=== PATIENT | male | born 1975 | race African-American/Black ===

== ENCOUNTER 2018-04-27 06:34 | Day surgery (SDC) | payer MEDICAID ==
--- NOTE | 2018-04-26 13:55 | Pre-Procedure Note/Attestation ---
Pre-Procedure Note/Attestation Complete Prior to Procedure Planned Procedure: right Procedure Narrative: phaco with IOL Indications for Procedure Pre-Operative Diagnosis: cataract Attestation I attest that I discussed the nature of the procedure; its benefits; risks and complications; and alternatives (and the risks and benefits of such alternatives ), prior to the procedure, with the patient (or the patient's legal marketing sales representative). I attest that, if there was a reasonable possibility of needing a blood transfusion, the patient (or the patient's legal marketing sales representative) was given the [facility] standardized written summary, pursuant to the [place] Blood Safety Act ([place] Health and Safety Code # 1645, as amended). I attest that I re-evaluated the patient just prior to the surgery and that there has been no change in the patient's H&P, except as documented below: CASH NOONAN Apr 26, 2018 13:55
--- NOTE | 2018-04-26 13:56 | Opthalmology H&P ---
Ophthalmology H&P H&P Chief Complaint: decreased vision in right eye HPI Vision Affects Ability to: read, focus/use eyes together, manage personal affairs HPI Narrative blurry vision Exam Visual Acuity: OD: 20/80 OS: 20/40 Tension: OD: 17 OS: 17 Eye Exam: normal OU: external exam, palpebral fissure-width, marginal reflex distance, levator function, corneas, anterior chambers, fundus exam; findings: lens - PSC OU Assessment/Plan Diagnosis: (1) Posterior subcapsular cataract, right eye Treatment Plan: cataract extraction w/ lens implant Goals of Treatment: improvement of vision, enhance quality of life Attestation Attestation The risks and benefits of the surgery as well as alternative procedures were explained to the patient in detail. CASH NOONAN Apr 26, 2018 13:56
[~2018-04-27] VITALS: Ht 175.3 cm; Wt 98.0 kg
[2018-04-27] VITALS (8 sets, daily range): BP systolic 112–148; BP diastolic 60–99
[2018-04-27] MEDS ORDERED: Pilocarpine 2% Opth 15ml Soln ONE (07:00)
[2018-04-27] MEDS ORDERED: Tetracaine 0.5% Opth 4ml Soln RIGHT EYE ONE (07:00)
[2018-04-27] MEDS ORDERED: Dexamethasone 4mg/ml vial ONE (07:00)
[2018-04-27] MEDS ORDERED: Proparacaine 0.5% Opth Soln 15ml RIGHT EYE ONE (07:00)
[2018-04-27] MEDS ORDERED: Akten 3.5% 1ml Btl RIGHT EYE ONE (07:00)
[2018-04-27] MEDS ORDERED: Pred Forte 1% Opth Susp 1ml ONE (07:00)
[2018-04-27] MEDS ORDERED: Maxitrol Opth Oint 3.5gm ONE (07:00)
[2018-04-27] MEDS: Tropicamide 1% Opth 15ml Soln RIGHT EYE SCH ×3 (12:49→13:05)
[2018-04-27] MEDS: Phenylephrine 10% Opth Soln 5ml RIGHT EYE SCH ×3 (12:49→13:05)
[2018-04-27] MEDS: Tobramycin Op Soln 0.3% 5ml RIGHT EYE SCH ×3 (12:50→13:05)
[2018-04-27] MEDS: Diclofenac Sod 0.1% Op Soln RIGHT EYE SCH ×3 (12:50→13:05)
[2018-04-27] MEDS: Cyclopentolate 1% Opth Sol 2ml RIGHT EYE SCH ×3 (12:50→13:05)
[2018-04-27] MEDS ORDERED: Sterile Water Irrig 1000ml IRRIG ONE (13:00)
[2018-04-27] MEDS ORDERED: NS Irrig 1000ml ONE (13:00)
[2018-04-27] MEDS ORDERED: LR 1000ml ONE (13:00)
[2018-04-27] MEDS ORDERED: BASAGLAR SQ (13:04)
[2018-04-27] MEDS ORDERED: ADMELOG SQ (13:04)
[2018-04-27] MEDS ORDERED: EPINEPHrine 1mg/1ml Amp ONE (13:15)
[2018-04-27] MEDS ORDERED: Lidocaine 1% MPF 10mg/ml 5ml ONE (13:15)
[2018-04-27] MEDS ORDERED: Propofol 200mg/20ml IV ONE (13:15)
[2018-04-27] MEDS ORDERED: Midazolam 2mg/2ml Inj ONE (13:16)
[2018-04-27] MEDS ORDERED: Povidone-Iodine 5% opth solution ONE (13:16)
[2018-04-27] MEDS ORDERED: BSS 15ml BTL ONE (13:16)
[2018-04-27] MEDS ORDERED: BSS 500ml btl ONE (13:16)
[2018-04-27] MEDS ORDERED: fentaNYL 100 mcg/2 mL IV ONE (13:16)
[2018-04-27] MEDS ORDERED: Sodium Hyaluronate 14 mg/ml 0.85ml ONE (13:16)
--- NOTE | 2018-04-27 13:26 | Anethesia Preoperative Eval ---
Anesthesia Pre-op PMH/ROS General Date of Evaluation: Apr 27, 2018 Time of Evaluation: 13:10 Anesthesiologist: Isidro ASA Score: ASA 3 Mallampati Score Class I : Soft palate, uvula, fauces, pillars visible Class II: Soft palate, uvula, fauces visible Class III: Soft palate, base of uvula visible Class IV: Only hard plate visible Mallampati Classification: Class I Surgeon: Trupti Diagnosis: cataract Surgical Procedure: R cataract extraction with IOL implantatation Anesthesia History: none Family History: no anesthesia problems Allergies: Coded Allergies: No Known Allergies (Unverified , 04/27/18) Medications: see eMAR Past Medical History Cardiovascular: Reports: HTN Endocrine: Reports: DM HEENT: Reports: cataract (R) Anesthesia Pre-op Phys. Exam Physician Exam Last Vital Signs Date Time Temp Pulse Resp B/P (MAP) Pulse Ox O2 Delivery O2 Flow Rate FiO2 04/27/18 13:01 97.0 77 18 148/99 (115) 99 97.0 04/27/18 12:43 Room Air Constitutional: NAD Cardiovascular: RRR Respiratory: CTA Airway Exam Mallampati Score: Class I MO: full ROM: full Anesthesia Pre-op A/P Studies Pre-op Studies: EKG, CXR Risk Assessment & Plan Assessment: ASA 3 Plan: Tootie Qiu M.D. Apr 27, 2018 13:26
[2018-04-27] MEDS ORDERED: Hydromorphone 0.5mg/0.5ml inj IVP PRN (13:30)
[2018-04-27] MEDS ORDERED: fentaNYL 100 mcg/2 mL IV PRN (13:30)
--- NOTE | 2018-04-27 14:08 | Immediate Post-Op Evaluation ---
Immediate Post-Op Evalulation Immediate Post-Op Evalulation Procedure: R CATARACT EXCTRACTION WITH IOL IMPLANTATION Date of Evaluation: Apr 27, 2018 Time of Evaluation: 14:07 IV Fluids: 300 Blood Products: NONE Estimated Blood Loss: NONE Urinary Output: NR Blood Pressure Systolic: 134 Blood Pressure Diastolic: 70 Pulse Rate: 80 Respiratory Rate: 18 O2 Sat by Pulse Oximetry: 99 Temperature (Fahrenheit): 98.8 Pain Score (1-10): 0 Nausea: No Vomiting: No Complications NONE Patient Status: awake Hydration Status: adequate Drug: NPNE INDICATED Tootie Felix M.D. Apr 27, 2018 14:08
--- NOTE | 2018-04-27 14:12 | 48 Hour Post Anesthesia Eval ---
Post Anesthesia Evaluation Procedure: R CATARACT EXCTRACTION WITH IOL IMPLANTATION Date of Evaluation: Apr 27, 2018 Time of Evaluation: 14:12 Blood Pressure Systolic: 139 0: 79 Pulse Rate: 81 Respiratory Rate: 18 Temperature (Fahrenheit): 98.8 O2 Sat by Pulse Oximetry: 99 Airway: patent Nausea: No Vomiting: No Pain Intensity: 0 Hydration Status: adequate Mental Status/LOC: patient returned to baseline Follow-up care needed: ready to discharge Tootie Felix M.D. Apr 27, 2018 14:12
--- NOTE | 2018-04-28 09:28 | Brief Operative Note ---
Immediate Post Operative Note Operative Note Chief Complaint: blurry vision Pre-op Diagnosis: cataract, OD Procedure: phaco with IOL, OD Post-op Diagnosis: Pseudophakia Post-op Diagnosis: same as pre-op Findings: consistent w/pre-op dx studies Surgeon: Trupti Anesthesiologist: Isidro Anesthesia: MAC Specimen: none Complications: none Condition: stable Fluids: LR Estimated Blood Loss: none Drains: none Implant(s) used?: Yes CASH NOONAN Apr 28, 2018 09:28
--- NOTE | 2018-04-28 09:30 | Operative Note - PDOC ---
Operative Note Operative Note Date of Operation/Procedure: Apr 27, 2018 Chief Complaint: blurry vision Pre-op Diagnosis: cataract, OD Procedure: phaco with IOL, OD Post-op Diagnosis: Pseudophakia Post-op Diagnosis: same as pre-op Operative Findings: consistent w/pre-op dx studies Surgeon: Trupti Anesthesiologist: Isidro Anesthesia: MAC Specimen: none Complications: none Condition: stable Fluids: LR Estimated Blood Loss: none Drains: none Implant(s) used?: Yes Indications for Procedure cataract Description of Procedure This patient has been complaining visually significant cataract in the affected eye with the best corrected visual acuity under moderate glare conditions worse. The patient complains of difficulties with glare in performing activities of daily living and wants to manage personal affairs with comfort and accuracy and see well enough to move with safety at home and outdoors. The risks, benefits and alternatives of the procedure were discussed with the patient in the office prior to scheduling surgery. All questions from the patient were answered after the surgical procedure was explained in detail. The risks of the procedure as explained to the patient include, but are not limited to, pain, infection, bleeding, loss of vision, retinal detachment, need for further surgery, loss of lens nucleus, double vision, etc. Alternative procedures were discussed which include, to do nothing or seek a second opinion. Informed consent for this procedure was obtained from the patient. The patient was referred to a primary care physician for a cardiopulmonary clearance prior to surgery, after proper evaluation was done patient was properly scheduled for outpatient surgery. The patient was brought to the operating room where the anesthesiologist established I.V. lines and cardiac monitoring leads. Mild intravenous sedation was administered. The patient was then prepared with a 5% solution of povidone -iodine to the conjunctival fornix and lashes, and a 5% solution of povidone- iodine to the lids and periorbital skin. The patient was then draped in the usual sterile fashion. A lid speculum was then placed in the operative eye. A keratome blade was then used to create a biplanar incision into the anterior chamber. Viscoelastics was then instilled into the anterior chamber. A 3-mm single pass clear corneal incision was made just anterior to the vascular arcade of the temporal limbus using a keratome. An anterior capsulorrhexis was created. The nucleus was hydrodissected and hydrodelineated, and was freely movable in the capsular bag. The nucleus was then phacoemulsified. Following the deep groove formation, the lens was split bimanually and the resultant quadrants and epicortex removed. Peripheral cortex was removed with the irrigation and aspiration handpiece. The capsular bag was expanded with viscoelastic. The intraocular lens was then inspected for right power and size and thought to be satisfactory. The implant was inspected under the microscope and found to be free of defects. The implant was inserted into the cartridge system under viscoelastic and placed in the capsular bag. The trailing haptic was positioned with the cartridge system. Viscoelastics was removed from the anterior chamber using the irrigation and aspiration unit. The corneal wound was then tested for leaks and none were found. The lid speculum were then removed. Sponge and needle counts were correct. An eye patch and shield were placed over the operative eye. The patient was taken to the recovery room in stable condition. There were no complications. The patient tolerated the procedure well. The patient was then transferred to the ambulatory surgery unit in stable and satisfactory condition , was given detailed written instructions and asked to follow up in the office the next day. CASH NOONAN Apr 28, 2018 09:30
== END 2018-04-27 15:20 | disposition home or self-care (01) ==
LOC: SUR 06:34
DX: H25.041 Posterior subcapsular polar age-related cataract, right eye (principal); I10 Essential (primary) hypertension; E11.9 Type 2 diabetes mellitus without complications; R01.1 Cardiac murmur, unspecified
CPT/HCPCS: 66984; 82962; J0171; J0360; J1100; J2250; J2704; J3010; J3370; J7120; V2632; Z7512; 94003; 94150

== ENCOUNTER 2019-01-07 06:42 | Day surgery (SDC) | payer MEDICAID ==
--- NOTE | 2019-01-03 16:30 | Opthalmology H&P ---
Ophthalmology H&P H&P Chief Complaint: decreased vision in left eye HPI Vision Affects Ability to: read, manage personal affairs Past Ocular History: retinal problems - mild npdr ou HPI Narrative Blurry Vision Exam Visual Acuity: OD 20/60 OS 20/80 Tension: OD 15 OS 14 Eye Exam: normal OU: external exam, palpebral fissure-width, marginal reflex distance, levator function, corneas, anterior chambers, lens; findings: fundus exam - MILD NPDR OU Assessment/Plan Treatment Plan: cataract extraction w/ lens implant Goals of Treatment: improvement of vision, enhance quality of life Attestation Attestation The risks and benefits of the surgery as well as alternative procedures were explained to the patient in detail. Trevin Lyles MD January 03, 2019 16:30
--- NOTE | 2019-01-03 16:32 | Pre-Procedure Note/Attestation ---
Pre-Procedure Note/Attestation Complete Prior to Procedure Planned Procedure: left Procedure Narrative: Cataract Extraction With Intraocular Lens Implant Left Eye Indications for Procedure Pre-Operative Diagnosis: Nuclear Sclerotic Cataract / PSC Left Eye Attestation I attest that I discussed the nature of the procedure; its benefits; risks and complications; and alternatives (and the risks and benefits of such alternatives ), prior to the procedure, with the patient (or the patient's legal customer assistance representative). I attest that, if there was a reasonable possibility of needing a blood transfusion, the patient (or the patient's legal customer assistance representative) was given the [facility] standardized written summary, pursuant to the [place] Blood Safety Act ([place] Health and Safety Code # 1645, as amended). I attest that I re-evaluated the patient just prior to the surgery and that there has been no change in the patient's H&P, except as documented below: Trevin Lyles MD January 03, 2019 16:32
[2019-01-07] VITALS (9 sets, daily range): BP systolic 126–140; BP diastolic 78–97
[~2019-01-07] VITALS: Ht 175.3 cm; Wt 93.0 kg
[~2019-01-07 06:42] MED LIST: ADMELOG SQ; BASAGLAR SQ
[2019-01-07] MEDS ORDERED: Maxitrol Opth Oint 3.5gm ONE (07:00)
[2019-01-07] MEDS ORDERED: Proparacaine 0.5% Opth Soln 15ml LEFT EYE ONE (07:00)
[2019-01-07] MEDS ORDERED: Pilocarpine 1% Opth 15ml Soln ONE (07:00)
[2019-01-07] MEDS ORDERED: Pred Forte 1% Opth Susp 1ml ONE (07:00)
[2019-01-07] MEDS ORDERED: Tetracaine 0.5% Opth 4ml Soln LEFT EYE ONE (07:00)
[2019-01-07] MEDS ORDERED: Akten 3.5% 1ml Btl LEFT EYE ONE (07:00)
[2019-01-07] MEDS ORDERED: Dexamethasone 4mg/ml vial ONE (07:00)
[2019-01-07] MEDS: Diclofenac Sod 0.1% Op Soln LEFT EYE SCH ×3 (07:45→08:02)
[2019-01-07] MEDS: Tropicamide 1% Opth 15ml Soln LEFT EYE SCH ×3 (07:45→08:02)
[2019-01-07] MEDS: Tobramycin Op Soln 0.3% 5ml LEFT EYE SCH ×3 (07:45→08:02)
[2019-01-07] MEDS: Cyclopentolate 1% Opth Sol 2ml LEFT EYE SCH ×3 (07:45→08:02)
[2019-01-07] MEDS: Phenylephrine 10% Opth Soln 5ml LEFT EYE SCH ×3 (07:45→08:02)
[2019-01-07] MEDS ORDERED: NOVOLOG100 UNIT/4 SQ (07:54)
[2019-01-07] MEDS ORDERED: EPINEPHrine 1mg/1ml Amp ONE (08:51)
[2019-01-07] MEDS ORDERED: Sodium Hyaluronate 14 mg/ml 0.85ml ONE (08:52)
[2019-01-07] MEDS ORDERED: BSS 15ml BTL ONE (08:52)
[2019-01-07] MEDS ORDERED: BSS 500ml btl ONE (08:52)
[2019-01-07] MEDS ORDERED: Povidone-Iodine 5% opth solution ONE (08:52)
[2019-01-07] MEDS ORDERED: fentaNYL 100 mcg/2 mL IV ONE (09:00)
[2019-01-07] MEDS ORDERED: Midazolam 2mg/2ml Inj ONE ×2 (09:00→09:13)
--- NOTE | 2019-01-07 09:29 | Anethesia Preoperative Eval ---
Anesthesia Pre-op PMH/ROS General Date of Evaluation: January 07, 2019 Time of Evaluation: 08:55 Anesthesiologist: Jessica ASA Score: ASA 1 Mallampati Score Class I : Soft palate, uvula, fauces, pillars visible Class II: Soft palate, uvula, fauces visible Class III: Soft palate, base of uvula visible Class IV: Only hard plate visible Mallampati Classification: Class II Surgeon: Trupti Diagnosis: left eye cataract Surgical Procedure: left eye cataract surgery Anesthesia History: none Family History: no anesthesia problems Allergies: Coded Allergies: No Known Allergies (Unverified , 01/07/19) Medications: see eMAR Patient NPO?: Yes NPO Date: January 06, 2019 NPO Time: 21:00 Past Medical History Cardiovascular: Denies: HTN, CAD, [place], valve dz, arrhythmia, other Pulmonary: Denies: asthma, COPD, SUSAN, other Gastrointestinal/Genitourinary: Denies: GERD, CRI, ESRD, other Neurologic/Psychiatric: Denies: dementia, CVA, depression/anxiety, TIA, other Endocrine: Reports: DM HEENT: Reports: cataract (L), cataract (R) Hematology/Immune: Denies: anemia, DVT, bleeding disorder, other Musculoskeletal/Integumentary: Denies: OA, RA, DJD, DDD, edema, other Anesthesia Pre-op Phys. Exam Physician Exam Last Vital Signs Date Time Temp Pulse Resp B/P (MAP) Pulse Ox O2 Delivery O2 Flow Rate FiO2 01/07/19 07:59 Room Air 01/07/19 07:50 98.1 80 18 139/89 99 Constitutional: NAD Neurologic: CN 2-12 intact Cardiovascular: RRR Respiratory: CTA Gastrointestinal: S/NT/ND Airway Exam Mallampati Score: Class II MO: full ROM: full Teeth: intact Dentures: no upper, no lower Anesthesia Pre-op A/P Labs chart reviewed Risk Assessment & Plan Assessment: A&Ox4 Plan: MAC Status Change Before Surgery: No Pre-Antibiotics Given Within 1 Hr of Incision: Ana Barker CRNA January 07, 2019 09:29
--- NOTE | 2019-01-07 09:30 | Immediate Post-Op Evaluation ---
Immediate Post-Op Evalulation Immediate Post-Op Evalulation Procedure: left eye cataract surgery with IOL implant Date of Evaluation: January 07, 2019 Time of Evaluation: 09:40 IV Fluids: LR 500 ml Blood Products: 0 Estimated Blood Loss: 0 Urinary Output: 0 Blood Pressure Systolic: 130 Blood Pressure Diastolic: 81 Pulse Rate: 76 Respiratory Rate: 18 O2 Sat by Pulse Oximetry: 98 Temperature (Fahrenheit): 97.3 Pain Score (1-10): 0 Nausea: No Vomiting: No Patient Status: awake, reacts, patent, none Hydration Status: adequate Given Within 1 Hr of Incision: Ana Barker CRNA January 07, 2019 09:30
--- NOTE | 2019-01-07 09:32 | 48 Hour Post Anesthesia Eval ---
Post Anesthesia Evaluation Procedure: left eye cataract surgery with IOL implant Date of Evaluation: January 07, 2019 Time of Evaluation: 10:04 Blood Pressure Systolic: 126 0: 79 Pulse Rate: 75 Respiratory Rate: 18 Temperature (Fahrenheit): 97.4 O2 Sat by Pulse Oximetry: 95 Airway: patent Nausea: No Vomiting: No Pain Intensity: 0 Hydration Status: adequate Mental Status/LOC: patient returned to baseline Follow-up care needed: patient intructions given Ana Lopez CRNA January 07, 2019 09:32
[2019-01-07] MEDS ORDERED: Propofol 200mg/20ml IV ONE (09:33)
--- NOTE | 2019-01-09 10:50 | Brief Operative Note ---
Immediate Post Operative Note Operative Note Chief Complaint: Blurry Vision Pre-op Diagnosis: Nuclear Sclerotic Cataract / PSC Left Eye Procedure: Cataract Extraction With IOL Left Eye Post-op Diagnosis: Pseudo Left Eye Post-op Diagnosis: same as pre-op Surgeon: Trevin Lyles MD Anesthesiologist: Ana Lopez CRNA Anesthesia: MAC Specimen: none Complications: none Condition: stable Fluids: LR Estimated Blood Loss: none Drains: none Implant(s) used?: Yes - Intraocular lens implant Trevin Lyles MD January 09, 2019 10:50
--- NOTE | 2019-01-09 10:53 | Operative Note - PDOC ---
Operative Note Operative Note Date of Operation/Procedure: January 07, 2019 Chief Complaint: Blurry Vision Pre-op Diagnosis: Nuclear Sclerotic Cataract / PSC Left Eye Procedure: Cataract Extraction With IOL Left Eye Post-op Diagnosis: Pseudo Left Eye Post-op Diagnosis: same as pre-op Surgeon: Trevin Lyles MD Anesthesiologist: Ana Lopez CRNA Anesthesia: MAC Specimen: none Complications: none Condition: stable Fluids: LR Estimated Blood Loss: none Drains: none Implant(s) used?: Yes - IOL Indications for Procedure Nuclear Sclerotic Cataract Left Eye Description of Procedure This patient has been complaining visually significant cataract in the left eye with the best corrected visual acuity of 20/80 under moderate glare conditions worse. The patient complains of difficulties with glare in performing activities of daily living and wants to manage personal affairs with comfort and accuracy and see well enough to move with safety at home and outdoors. The risks, benefits and alternatives of the procedure were discussed with the patient in the office prior to scheduling surgery. All questions from the patient were answered after the surgical procedure was explained in detail. The risks of the procedure as explained to the patient include, but are not limited to, pain, infection, bleeding, loss of vision, retinal detachment, need for further surgery, loss of lens nucleus, double vision, etc. Alternative procedures were discussed which include, to do nothing or seek a second opinion. Informed consent for this procedure was obtained from the patient. The patient was referred to a primary care physician for a cardiopulmonary clearance prior to surgery, after proper evaluation was done patient was properly scheduled for outpatient surgery. The patient was brought to the operating room where the anesthesiologist established I.V. lines and cardiac monitoring leads. Mild intravenous sedation was administered. The patient was then prepared with a 5% solution of povidone -iodine to the conjunctival fornix and lashes, and a 5% solution of povidone- iodine to the lids and periorbital skin. The patient was then draped in the usual sterile fashion. A lid speculum was then placed in the operative eye. A keratome blade was then used to create a biplanar incision into the anterior chamber. Viscoelastics was then instilled into the anterior chamber. A 3-mm single pass clear corneal incision was made just anterior to the vascular arcade of the temporal limbus using a keratome. Anterior capsulorrhexis was created. The nucleus was hydrodissected and hydrodelineated, and was freely movable in the capsular bag. The nucleus was then phacoemulsified. Following the deep groove formation, the lens was split bimanually and epicortex removed under vacuum burst-mode phacoemulsification. Peripheral cortex was removed with the irrigation and aspiration handpiece. The capsular bag was expanded with viscoelastic. The intraocular lens was then inspected for right power and size and thought to be satisfactory. The implant was inspected under the microscope and found to be free of defects. The implant was inserted into the cartridge system under viscoelastic and placed in the capsular bag. The trailing haptic was positioned with the cartridge system. Viscoelastics was removed from the anterior chamber using the irrigation and aspiration unit. The corneal wound was then tested for leaks and none were found. The lid speculum were then removed. Sponge and needle counts were correct. An eye patch and shield were placed over the operative eye. The patient was taken to the recovery room in stable condition. There were no complications. The patient tolerated the procedure well. The patient was then transferred to the ambulatory surgery unit in stable and satisfactory condition , was given detailed written instructions and asked to follow up in the office the next day. Trevin Lyles MD January 09, 2019 10:53
== END 2019-01-07 11:00 | disposition home or self-care (01) ==
LOC: MERGE 06:42 → SUR 06:42
DX: H25.12 Age-related nuclear cataract, left eye (principal); R01.1 Cardiac murmur, unspecified; Z83.3 Family history of diabetes mellitus; R03.0 Elevated blood-pressure reading, without diagnosis of hypertension; E11.9 Type 2 diabetes mellitus without complications
CPT/HCPCS: 66984; 82962; J0171; J1100; J2250; J2704; J3010; J3370; V2632; Z7512; 94003; 94150